=== PATIENT | female | born 1975 | race African-American/Black ===

== ENCOUNTER 2017-01-17 02:33 | Emergency (ER) | payer OTHER ==
[~2017-01-17] VITALS: Ht 157.5 cm; Wt 89.8 kg
[~2017-01-17 02:33] MED LIST: BACTRIM DS TAB1 EACH PO; CELEBREX50 MG PO; DIFLUCAN150 MG PO; IBUPROFEN 400400 M2; IBUPROFEN 600600 M1 PO; NORCO 5-325 TA1 EACH PO; PYRIDIUM200 MG PO; TOPROL XL25 MG PO
[2017-01-17 03:17] LABS: URINE BILIRUBIN NEGATIVE (Negative); URINE BLOOD NEGATIVE (Negative); URINE COLOR YELLOW; URINE GLUCOSE-RANDOM* NEGATIVE (Negative); URINE KETONES NEGATIVE (Negative); URINE LEUKOCYTES-REFLEX NEGATIVE (Negative); URINE PROTEIN (DIPSTICK) NEGATIVE (Negative); URINE SPECIFIC GRAVITY 1.015 (1.003-1.035); URINE UROBILINOGEN 0.2 E.U./dl (0.2-1.0)
[2017-01-17 03:19] LABS: ABSOLUTE NEUTROPHILS 2.7 thou/uL (1.4-8.2); BASOPHILS 0.5 % (0.0-2.0); EOSINOPHILS 3.7 % (0.0-3.0); HEMOGLOBIN 13.1 gm/dL (12.0-15.0); LYMPHOCYTES 19.1 % (24.0-44.0); MCH 30.1 pg (26.0-34.0); MCHC 34.5 g/dL (28.0-37.0); MCV 87.3 fL (80.0-100.0); MONOCYTES 11.4 % (1.0-8.0); PLATELET COUNT 214 thou/uL (150-400); POLYS 65.3 % (36.0-66.0); RBC 4.36 mil/uL (4.20-5.00); RDW 13.1 % (10.5-14.5); WBC 4.1 thou/uL (4.0-11.0)
[2017-01-17 03:20] LABS: MANUAL DIFF NO
[2017-01-17 03:21] LABS: CALCIUM 8.4 mg/dL (8.5-10.1); CREATININE 1.2 mg/dL (0.6-1.0); POTASSIUM 3.6 mmol/L (3.5-5.1)
[2017-01-17 03:27] LABS: ALBUMIN 3.4 g/dL (3.4-5.0); TOTAL BILIRUBIN 0.4 mg/dL (<0.1-1.0); TOTAL PROTEIN 6.9 g/dL (6.4-8.2)
[2017-01-17] MEDS ORDERED: ZOFRAN ODT8 MG PO (04:16)
[2017-01-17 04:19] VITALS: BP 122/76
[2017-01-17 05:19] LABS: LARGE PLATELETS OCCASIONAL
== END 2017-01-17 04:19 | disposition home or self-care (01) ==
LOC: ER 02:33
PROVIDERS: Emergency Medicine
DX: R10.9 Unspecified abdominal pain (principal); R19.7 Diarrhea, unspecified; R11.0 Nausea; J02.9 Acute pharyngitis, unspecified; Z90.49 Acquired absence of other specified parts of digestive tract; Z95.5 Presence of coronary angioplasty implant and graft

== ENCOUNTER → 2017-02-21 | Outpatient (CLI) | payer OTHER ==
[~2017-02-21] MED LIST changes: +ZOFRAN ODT8 MG PO
== END ==
LOC: ULTRA 12:45
DX: Z12.31 Encounter for screening mammogram for malignant neoplasm of breast (principal); N83.202 Unspecified ovarian cyst, left side; N83.201 Unspecified ovarian cyst, right side